=== PATIENT | female | born 1975 | race Caucasian/White ===

== ENCOUNTER 2018-05-25 08:10 | Emergency (ER) | payer SELFPAY ==
[~2018-05-25] VITALS: Ht 154.9 cm; Wt 59.0 kg
[2018-05-25 08:16] VITALS: BP 118/43
--- NOTE | 2018-05-25 08:23 | NUR ---
PATIENT AMBULATED TO BED 8.
--- NOTE | 2018-05-25 08:25 | NUR ---
42Y/F BIB FAMILY C/O OF [facility] SINCE THIS MORNING, + N/V X 2 SINCE THIS MORNING, 7/10 PAIN SCALE; BED DOWN; BEDRAIL UP X 1; ER MD AWARE AND NOTIFIED OF PT STATUS. WILL CONT TO MONITOR PT. HX; DENIES RX; DENIES
--- NOTE | 2018-05-25 09:14 | NUR ---
PT AMBULATED TO BATHROOM
--- NOTE | 2018-05-25 09:23 | NUR ---
DR HERNANDEZ AT BEDSIDE FOR PATIENT EVALUATION
[2018-05-25] MEDS ORDERED: PROMETHAZINE 25 MG/ML VIAL IM ONE (09:35)
[2018-05-25] MEDS ORDERED: KETOROLAC 60 MG/2 ML VIAL IM ONE (09:35)
[2018-05-25] MEDS ORDERED: MECLIZINE 25 MG TAB PO ONE (09:35)
[2018-05-25] MEDS ORDERED: MORPHINE SULFATE 2 MG/ML SYR IM ONE (09:50)
--- NOTE | 2018-05-25 10:25 | NUR ---
PT TO CT VIA [facility] IN STABLE CONDITION WITH ASSOCIATE
--- NOTE | 2018-05-25 10:30 | NUR ---
PT BACK FROM CT, MONITORS REAPPLIED
--- NOTE | 2018-05-25 11:34 | NUR ---
PT AMBULATED TO [facility] WITH ASSIST IN NO APPEARENT DISTRESS WITH STEADY GAIT
--- NOTE | 2018-05-25 12:09 | NUR ---
Patient discharged with v/s stable. Written and verbal after care instructions given and explained. Patient alert, oriented and verbalized understanding of instructions. Ambulatory with steady gait. All questions addressed prior to discharge. ID band removed. Patient advised to follow up with PMD. Rx of ANTIVERT, FIORICET given. Patient educated on indication of medication including possible reaction and side effects. Opportunity to ask questions provided and answered.
[2018-05-25 12:10] VITALS: BP 114/53
== END 2018-05-25 12:09 | disposition home or self-care (01) ==
LOC: MED 08:10
DX: G44.209 Tension-type headache, unspecified, not intractable (principal)
CPT/HCPCS: 70450; 81025; 96372; 99285; J1885; J2550; J8597; J2270

== ENCOUNTER 2021-04-24 23:53 | Emergency (ER) | payer SELFPAY ==
[~2021-04-24] VITALS: Ht 154.9 cm; Wt 69.9 kg
[2021-04-25] VITALS: BP 116/82
--- NOTE | 2021-04-25 00:07 | NUR ---
PATIENT AMBULATED TO THE BATHROOM FOR URINE COLLECTION
--- NOTE | 2021-04-25 00:10 | NUR ---
ERMD EXAMINATING PATIENT
--- NOTE | 2021-04-25 00:12 | NUR ---
PATIENT TO LOBBY
[2021-04-25] MEDS ORDERED: IBUPROFEN 800 MG TAB PO ONE (00:30)
--- NOTE | 2021-04-25 00:49 | NUR ---
CALLED PT. IN LOBBY FOR MEDICATION, BUT NO ANSWER. WILL TRY AGAIN IN 5 MINS.
--- NOTE | 2021-04-25 00:56 | NUR ---
TRIED TO CALL FOR PT. IN LOBBY AND TENT. NO ANSWER.
[2021-04-25 01:00] VITALS: BP 116/82
--- NOTE | 2021-04-25 01:00 | NUR ---
CALLED FOR PT. FOR LAST TIME IN LOBBY AND TENT. NO ANSWER STILL.
--- NOTE | 2021-04-25 01:00 | NUR ---
PATIENT ELOPED FROM FACILITY. DISCHARGE INSTRUCTIONS NOT GIVEN TO PATIENT. ERMD MADE AWARE.
== END 2021-04-25 01:00 | disposition home or self-care (01) ==
LOC: MED 23:53
DX: R51.9 Headache, unspecified (principal)
CPT/HCPCS: 81025; 99282